=== PATIENT | female | born 1995 | race Two or more races ===

== ENCOUNTER 2017-09-21 15:29 | Emergency (ER) | payer OTHER, SELFPAY ==
[2017-09-21 15:30] VITALS: BP 136/75; PULSE 88; RESP 16; TEMP 36.9; O2SAT 96; BMI 21.1
--- NOTE | 2017-09-21 16:14 | ED.DCSUM_ITS ---
- ER Visit Summary Date of Service: 09/21/17 Chief Complaint: Laceration History of Present Illness: The patient is a 22 F [id number] presenting with a left index finger laceration at work 1 hour ago. She attempted to catch a metal chopper/knife that was falling. She sustained a laceration to the dorsal aspect of her left index finger middle phalanx. No associated pain. No paresthesias. Last tetanus unknown. Prior treatment includes dressing. Mild severity. Physical Examination: 1 cm full-thickness laceration dorsal aspect left index finger middle phalanx. No evidence of foreign body when examined under direct lighting with good hemostasis. No evidence of extensor tendon laceration. Normal distal neurovascular examination. Test Results: Emergency Department Course and Treatment: The wound was irrigated. No evidence of foreign body. No evidence of tendon injury. He was anesthetized with 1 cc of lidocaine without epinephrine. It was then repaired using 3 size 5 nylon suture simple interrupted technique. She tolerated well. No immediate complications. Treatment Plan: Follow-up at [facility] Disposition: Home stable condition Impression: Initial encounter left index finger 1 7 m laceration work-related This note was generated with [employer] dictation software. It may contain incorrect words, spelling, and punctuation that were not noted in review of the chart prior to signing ED Disposition - Plan for ED Patient: Chief Complaint: Laceration Instructions: ED Laceration All Referrals: [facility] [GROUP OF PHYSICIANS] -
[2017-09-21] MEDS: Diphth,Pertuss(Acell),Tet Vac 0.5 ML Vial IM (16:41)
[2017-09-21 16:48] VITALS: RESP 16
== END 2017-09-21 16:48 | disposition home or self-care (01) ==
PROVIDERS: Emergency Provider Emergency Medicine
DX: S61.211A Laceration without foreign body of left index finger without damage to nail, initial encounter (principal); W26.0XXA Contact with knife, initial encounter; Y93.89 Activity, other specified; Y92.9 Unspecified place or not applicable; Y99.0 Civilian activity done for income or pay
CPT/HCPCS: 12001; 90471; 90715; 99283

== ENCOUNTER → 2020-01-10 12:16 | Outpatient (CLI) | payer MEDICAID, SELFPAY ==
[2019-12-13 14:11] VITALS: BMI 21.7
[2020-01-10 15:28] LABS: ALB/GLOB Ratio 1.3 RATIO (0.9-2.4); AST(SGOT) 904 U/L (15-37); Alanine Aminotransfer ALT/SGPT 691 U/L (13-56); Albumin, Serum 4.4 g/dL (3.2-5.0); Alkaline Phosphatase 71 U/L (45-117); Anion Gap 6 (5-15); BUN 9 mg/dL (7-18); BUN/Creat Ratio 12.5 RATIO (10-20); Calcium,Total 8.6 mg/dL (8.5-10.1); Chloride 107 mmol/L (98-107); Creatinine, Serum 0.72 mg/dL (0.55-1.02); EST Glomerular Filtration Rate 104 mL/min (>60); Est Glom Filt Rate - Afr Amer 125 mL/min (>60); Globulin 3.3 g/dL (2.2-4.2); Glucose 78 mg/dL (74-106); Magnesium 2.4 mg/dL (1.6-2.6); Potassium 3.9 mmol/L (3.5-5.1); Protein, Total 7.7 g/dL (6.4-8.2); Sodium Level 139 mmol/L (136-145)
== END ==
PROVIDERS: Family Medicine; PCP Family Medicine; Referring Provider Family Medicine; Visit Provider Family Medicine
DX: R19.7 Diarrhea, unspecified (principal)
CPT/HCPCS: 36415; 80053; 83735

== ENCOUNTER → 2020-01-11 09:34 | Outpatient (CLI) | payer MEDICAID, SELFPAY ==
[2019-12-13 14:11] VITALS: BMI 21.7
[2020-01-12 07:07] LABS: HEPATITIS B SURFACE AG Negative (Negative); Hepatitis A AB, Total Negative (Negative); Hepatitis A IgM Antibody Negative (Negative); Hepatitis B Core AB IgM Negative (Negative); Hepatitis B Core Ab Total Negative (Negative); Hepatitis C Ab <0.1 s/co ratio (0.0-0.9)
[2020-01-12 08:44] LABS: Hep B Surface Antibodies Reactive (.)
== END ==
PROVIDERS: PCP Family Medicine; Referring Provider Family Medicine; Visit Provider Family Medicine
DX: R19.7 Diarrhea, unspecified (principal); R79.89 Other specified abnormal findings of blood chemistry
CPT/HCPCS: 36415; 86704; 86705; 86706; 86708; 86709; 86803; 87177; 87209; 87340; 87493; 87506

== ENCOUNTER → 2020-01-14 14:02 | Outpatient (CLI) | payer MEDICAID, SELFPAY ==
[2019-12-13 14:11] VITALS: BMI 21.7
[2020-01-14 18:41] LABS: AST(SGOT) 15 U/L (15-37); Alanine Aminotransfer ALT/SGPT 148 U/L (13-56); Albumin, Serum 3.7 g/dL (3.2-5.0); Alkaline Phosphatase 50 U/L (45-117); Bilirubin, Direct 0.19 mg/dL (0.00-0.30); Globulin 3.1 g/dL (2.2-4.2); Protein, Total 6.8 g/dL (6.4-8.2)
== END ==
PROVIDERS: PCP Family Medicine; Visit Provider Family Medicine
DX: R79.89 Other specified abnormal findings of blood chemistry (principal)
CPT/HCPCS: 36415; 80076

== ENCOUNTER → 2020-02-27 15:37 | Outpatient (CLI) | payer MEDICAID, SELFPAY ==
[2019-12-13 14:11] VITALS: BMI 21.7
== END ==
PROVIDERS: PCP Family Medicine; Visit Provider Physician Assistant Surgical
DX: Z11.59 Encounter for screening for other viral diseases (principal)
CPT/HCPCS: 87635; U0003